=== PATIENT | female | born 1985 | race Caucasian/White ===

== ENCOUNTER 2020-10-06 07:00 | Emergency (ER) | payer BC ==
[2020-10-06] MEDS ORDERED: Metoclopramide HCl 10 MG/2 ML VIAL ONE (07:43)
[2020-10-06] MEDS ORDERED: methylPREDNISolone Sod Succ/PF 125 MG/2 ML VIAL ONE (07:43)
[2020-10-06] MEDS ORDERED: diphenhydrAMINE 50 MG/ML VIAL ONE (07:43)
[2020-10-06] MEDS ORDERED: Ketorolac Tromethamine 30 MG/ML VIAL IVP SCH (08:00)
== END 2020-10-06 09:54 | disposition home or self-care (01) ==
LOC: CSHERS 07:00
DX: G43.909 Migraine, unspecified, not intractable, without status migrainosus (principal); Z79.899 Other long term (current) drug therapy
CPT/HCPCS: 96374; 96375; J1200; J1885; J2765; J2930

== ENCOUNTER 2021-05-10 08:24 | Day surgery (SDC) | payer BC ==
[2021-05-09 09:42] VITALS: BMI 28.6
[2021-05-10] MEDS ORDERED: CeleCOXIB 100 MG CAP ONE (08:42)
[2021-05-10] MEDS ORDERED: Gabapentin 300 MG CAP ONE (08:42)
[2021-05-10] MEDS ORDERED: Lidocaine 1% MPF 2 ML VIAL ONE (08:43)
[2021-05-10] MEDS ORDERED: Famotidine/PF 20 mg/2ml Vial ONE (08:43)
[2021-05-10 09:07] LABS: Hemoglobin 13.2 g/dL (12.0-15.5); Mean Corpuscular HGB CONC 32.1 g/dL (32.0-36.0); Mean Corpuscular Hemoglobin 29.6 pg (27.0-33.0); Mean Corpuscular Volume 92.2 fl (81.6-98.3); Mean Platelet Volume 9.5 fl (7.4-10.4); Platelet Count 269 10x3/uL (150-450); RBC Distribution Width 11.9 % (11.5-14.5); Red Blood Cell (RBC) Count 4.46 10x6/uL (3.90-5.03); White Blood Cell (WBC) Count 7.4 10x3/uL (3.5-10.5)
[2021-05-10] MEDS ORDERED: Fentanyl 100 MCG/2 ML VIAL ONE ×2 (09:22→09:46)
[2021-05-10] MEDS ORDERED: ePHEDrine Sulfate 50 MG/10 ML VIAL ONE ×2 (09:46→11:09)
[2021-05-10] MEDS ORDERED: Midazolam HCl 2 mg/2 ml Vial ONE (09:46)
[2021-05-10] MEDS ORDERED: PROPOFOL 20 ML ONE (09:46)
[2021-05-10] MEDS ORDERED: Ondansetron PF 4 MG/2 ML Vial ONE (09:47)
[2021-05-10] MEDS ORDERED: Dexamethasone 4 mg/ml Vial ONE (09:47)
[2021-05-10] MEDS ORDERED: PHENYLEPHRINE-NS 100 MCG/ML 10 ML SYRINGE ONE (09:47)
[2021-05-10] MEDS ORDERED: Rocuronium Bromide 10 MG/ML (10ML VIAL) ONE (09:47)
[2021-05-10] MEDS ORDERED: Bupivacaine PF 0.5% 30 ML VIAL ONE (09:47)
[2021-05-10] MEDS ORDERED: EPINEPHrine 1 MG/ML AMP ONE (09:47)
[2021-05-10] MEDS ORDERED: Lidocaine 2% PF 5 ML VIAL ONE (09:47)
[2021-05-10] MEDS ORDERED: ceFAZolin 2 GM/DEX 5% 100 ML BAG ONE (10:26)
[2021-05-10] MEDS ORDERED: HYDROmorphone 0.5 MG/0.5 ML SYRINGE ONE (11:02)
[2021-05-10] MEDS ORDERED: Glycopyrrolate 0.2 MG/ML 5 ML SYRINGE ONE (11:38)
[2021-05-10] MEDS ORDERED: SUGAMMADEX SODIUM 200 MG/2 ML VIAL ONE (11:41)
[2021-05-10] MEDS ORDERED: HYDROcodone/Acetaminophen 5/325 mg Tablet ONE (14:31)
== END 2021-05-10 15:20 | disposition home or self-care (01) ==
LOC: CSHSDC 08:24
PROVIDERS: ATTEND Student in an Organized Health Care Education/Training Program
PROC: 0UT74ZZ Resection of Bilateral Fallopian Tubes, Percutaneous Endoscopic Approach (ICD-10-PCS; principal; 2021-05-10)
PROC: 0UT94ZZ Resection of Uterus, Percutaneous Endoscopic Approach (ICD-10-PCS; principal; 2021-05-10)
DX: Z15.09 Genetic susceptibility to other malignant neoplasm (principal); N88.8 Other specified noninflammatory disorders of cervix uteri; E06.3 Autoimmune thyroiditis; E03.9 Hypothyroidism, unspecified; E28.2 Polycystic ovarian syndrome; G43.909 Migraine, unspecified, not intractable, without status migrainosus; Z79.890 Hormone replacement therapy; Z79.84 Long term (current) use of oral hypoglycemic drugs; Z79.899 Other long term (current) drug therapy
CPT/HCPCS: 36415; 85027; 86850; 86900; 86901; 88307; J0171; J1100; J1170; J2001; J2250; J2405; J2704; J3010; S0020; S0028

== ENCOUNTER 2022-01-14 12:04 | Emergency (ER) | payer BC ==
[2022-01-14 13:16] LABS: #Monocytes 0.4 10x3/uL (0.0-1.1); #Neutrophils 3.7 10x3/uL (1.5-8.4); %Basophils 0.2 % (0.0-2.0); %Eosinophils 0.6 % (0.0-6.0); %Lymphocytes 24.7 % (18.0-47.0); %Monocytes 6.7 % (0.0-10.0); %Neutrophils 67.8 % (40.0-75.0); Mean Corpuscular HGB CONC 33.8 g/dL (32.0-36.0); Mean Corpuscular Hemoglobin 30.5 pg (27.0-33.0); Mean Corpuscular Volume 90.2 fl (81.6-98.3); Platelet Count 223 10x3/uL (150-450); RBC Distribution Width 12.2 % (11.5-14.5); Red Blood Cell (RBC) Count 4.59 10x6/uL (3.90-5.03); White Blood Cell (WBC) Count 5.4 10x3/uL (3.5-10.5)
[2022-01-14 13:29] LABS: BHCG - Serum Negative (NEGATIVE); Pregs Control Background? CLEAR/WHITE (CLR/WHITE); Pregs Control Bar Appear? YES (CONTROL BAR)
[2022-01-14 13:32] LABS: ALT (SGPT) 23 U/L (8-55); AST (SGOT) 22 U/L (5-34); Albumin 4.3 g/dL (3.5-5.0); Alkaline Phosphatase 73 U/L (40-110); Anion Gap 13 mmol/L (10-20); BUN (Urea Nitrogen) 15 mg/dL (7.0-18.7); Bilirubin, Total 0.7 mg/dL (0.2-1.2); Calc. Creatinine Clearance 0 mL/min (70-130); Calcium 9.8 mg/dL (7.8-10.44); Carbon Dioxide 27 mmol/L (22-29); Chloride 103 mmol/L (98-107); Estimated GFR 94; Globulin 3.3 g/dL (2.4-3.5); Glucose 97 mg/dL (70-105); Lipase 26 U/L (8-78); Potassium 4.3 mmol/L (3.5-5.1); Protein, Total 7.6 g/dL (6.0-8.3); Sodium 139 mmol/L (136-145)
[2022-01-14] MEDS ORDERED: Morphine 4 MG/ML VIAL ONE (13:33)
[2022-01-14] MEDS ORDERED: Ondansetron PF 4 MG/2 ML Vial ONE (13:33)
[2022-01-14 13:43] LABS: Bilirubin Neg (Negative); Blood, Urine 25 (Negative); Clarity Clear (Clear); Glucose, Urine (Dipstick) Normal (Negative); Ketone, Urine Negative (Negative); Leukocyte Negative (Negative); Nitrite Negative (Negative); Protein, Urine (Dipstick) Negative (Neg-Trace); Urobilinogen Normal mg/dL (Less than 2)
[2022-01-14 13:56] LABS: Bacteria/HPF None Seen HPF (None Seen); RBC/HPF None Seen HPF (0-3); Squamous Epithelial 0-3 HPF (0-3); WBC/HPF None Seen HPF (0-3)
[2022-01-14] MEDS ORDERED: Iopamidol 370 76% 100 ML VIAL ONE (15:03)
== END 2022-01-14 14:53 | disposition home or self-care (01) ==
LOC: CSHERS 12:04
DX: R10.31 Right lower quadrant pain (principal); R11.0 Nausea; E06.3 Autoimmune thyroiditis; Z79.899 Other long term (current) drug therapy
CPT/HCPCS: 36415; 74177; 80053; 81003; 81015; 83690; 84703; 85025; 96374; 96375; J2270; J2405; Q9967